=== PATIENT | male | born 1950 | race African-American/Black ===

== ENCOUNTER → 2018-12-11 | Outpatient (RCR) | payer MEDICARE, BC | END | disposition still patient (30) | LOC: WCC 14:40 | DX: E11.621 Type 2 diabetes mellitus with foot ulcer (principal); I73.9 Peripheral vascular disease, unspecified; E11.52 Type 2 diabetes mellitus with diabetic peripheral angiopathy with gangrene; I96 Gangrene, not elsewhere classified; Z89.421 Acquired absence of other right toe(s); Z89.512 Acquired absence of left leg below knee; I10 Essential (primary) hypertension; Z79.899 Other long term (current) drug therapy | CPT/HCPCS: 82962; G0463 ==

== ENCOUNTER 2018-12-12 08:32 | Outpatient (RCR) | payer MEDICARE, BC | END 2019-01-11 | disposition home or self-care (01) | LOC: WCC 08:32 | DX: T86.828 Other complications of skin graft (allograft) (autograft) (principal); Z89.411 Acquired absence of right great toe; Z89.421 Acquired absence of other right toe(s); I10 Essential (primary) hypertension; E11.9 Type 2 diabetes mellitus without complications; Z89.519 Acquired absence of unspecified leg below knee; Z79.899 Other long term (current) drug therapy | CPT/HCPCS: 82962; 97606; G0277 ==

== ENCOUNTER 2019-01-14 08:57 | Outpatient (RCR) | payer MEDICARE, BC | END 2019-02-10 | disposition home or self-care (01) | LOC: WCC 08:57 | DX: T86.828 Other complications of skin graft (allograft) (autograft) (principal); Z89.421 Acquired absence of other right toe(s); Z89.519 Acquired absence of unspecified leg below knee; Z79.899 Other long term (current) drug therapy | CPT/HCPCS: 82962; G0277; G0463 ==

== ENCOUNTER 2019-02-11 09:01 | Outpatient (RCR) | payer MEDICARE, BC | END 2019-03-13 | disposition home or self-care (01) | LOC: WCC 09:01 | DX: T86.828 Other complications of skin graft (allograft) (autograft) (principal); I10 Essential (primary) hypertension; E11.9 Type 2 diabetes mellitus without complications; Z89.411 Acquired absence of right great toe; Z89.421 Acquired absence of other right toe(s); Z79.899 Other long term (current) drug therapy | CPT/HCPCS: 82962; 97605; G0277 ==